=== PATIENT | female | born 1985 | race Caucasian/White ===

== ENCOUNTER 2020-08-02 13:04 | Emergency (ER) | payer MEDICAID, SELFPAY ==
[2020-08-02 13:11] VITALS: BP 110/55; PULSE 81; RESP 20; TEMP 37.4; O2SAT 99; BMI 28.3
--- NOTE | 2020-08-02 13:21 | XR_ITS ---
PROCEDURE: XR CHEST 2V CLINICAL HISTORY: SHORT OF BREATH COMPARISON: CR CXR2V XR chest 2V from 04/05/2018 FINDINGS: The lung bermeo are fairly well expanded. There is mild generalized cardiomegaly representing a change from previous chest film at which time cardiac size is normal. There are small bilateral pleural effusions. There is mild vascular congestion with slight prominence of the upper lobe vessels. There is subtle patchy opacities seen through the left heart border probably representing atelectasis although a small pneumonic infiltrate cannot be excluded. There is mild dextroscoliotic curvature of the upper lumbar spine. IMPRESSION: Mild cardiomegaly with mild pulmonary venous hypertension and small bilateral pleural effusions and early congestive failure is probable, cannot exclude possible small pneumonic infiltrate left lower lobe Dictated by: Dr. Micah Contreras MD 08/02/2020 14:15 Dr. Micah Contreras MD in [place] 08/02/2020 14:15
[2020-08-02 13:34] VITALS: BP 110/55; PULSE 81; RESP 20; TEMP 37.4; O2SAT 99
--- NOTE | 2020-08-02 13:37 | HMH.EDUTC ---
[facility] [place] Disposition Clinical Impression: Bilateral pleural effusion Pneumonia Qualifiers: Pneumonia type: due to unspecified organism Laterality: left Lung location: lower lobe of lung Qualified Code(s): J18.9 - Pneumonia, unspecified organism Disposition: Home, Self-Care Condition on Discharge: Good Instructions: Pneumonia-Adult, Prednisone, Azithromycin Additional Instructions: Continue using Albuteral inhaler as prescribed * Follow up with Cardiology as advised, you need to call and make appointment for further treatment and evaluation Straight to ER if any life threatening symptoms, chest pain, worsening of pain in lungs or severe shortness of breath No work until test results back Return if needed Take medication as prescribed Follow up with Family Doctor for further evaluation and treatment You was tested for COVID 19 call the [facility] in the next 48-72 hours to see if your test result is back and the result Make sure that you are drinking plenty of fluids with the mucinex Prescriptions: guaiFENesin [Mucinex 600mg tablet] 600 mg PO Q12H PRN #20 tab.er.[id number] PRN Reason: Congestion Transmission Status: Received by [id number] Azithromycin [Z-Matthew 250mg Tab] 250 mg PO DIRECTED #6 tab Transmission Status: Received by [id number] Referrals: PCP,No [Primary Care Provider] - As needed Chencho Boone PA [Physician Quarantine Inspector] - Otilia Tan APRN [Nurse Practitioner] - Time of Disposition: 14:33 Medical Decision Making - Rey Inquiry Pt receiving controlled substance: No Rey was queried for this patient: No Vital Signs: 08/02/20 13:11 08/02/20 13:34 Temperature 99.3 F 99.3 F Temperature Source Oral Pulse Rate 81 Pulse Rate [Left] 81 Respiratory Rate 20 20 Blood Pressure 110/55 L Blood Pressure [Right Arm] 110/55 L Blood Pressure Mean [Right Arm] 73 Blood Pressure Source [Right Arm] Automatic Cuff Blood Pressure Position [Right Arm] Sitting 02 Sat by Pulse Oximetry 99 Oxygen Delivery Method Room Air Orders (Tests/Meds): ORDERS Category Date Time Status Covid-19 Nasal PCR Sendout Moe Stat Lab 08/02/20 13:40 Received - Radiology Data #1 Image(s): Chest Image Reviewed: Yes I have reviewed radiologist's interpretation Mild cardiomegaly with mild pulmonary venous hypertension and small bilateral pleural effusions and early congestive failure is probable, cannot exclude possible small pneumonic infiltrate left lower lobe - Reevaluation(s) Time: 14:30 Reevaluation #1: After viewing xray and Radiologist interpretation, Discussed with patient that we could transfer her to ED for further work up and evaluation, patient declined at this time Spoke with Cardiology clinic and patient was given card to call for appointment for further work up and evaluation and advised that she needed to return immediately to the ED if she begin experiencing CP or any life threatening symptoms Patient verbalized understanding and start medication as prescribed.. Pt reports has taken Azithromycin and Mucinex in the past without reactions or complications, No distress sitting in room talking with family [facility] HPI - General Stated complaint: pulurisy Time Seen by Provider: 08/02/20 13:37 Mode of Arrival: Ambulatory Source of Information: Significant Other Limitations: No Limitations Description of Symptoms (Recalled from Triage Doc. by RN): Pt was seen at the [facility] and they think she might have pleusy. Pt c/o pain when taking a breath in that radiates into her shoulders, rash on face, SOB, and fever of 101 this morning. HEENT Symptoms (Recalled from RN notes): No Resp Symptoms (Recalled from RN notes): Yes Skin Symptoms (Recalled from RN notes): No MS Symptoms (Recalled from RN notes): No Functional Status (Recalled from RN notes): WNL - History of Present Illness Provider Complaint: Patient states that she has a history of Pleurisy states that she feels like she may have it ag
[2020-08-04 12:50] LABS: Covid-19 Nasal PCR Sendout Lex NOT DETECTED
== END 2020-08-02 14:51 | disposition home or self-care (01) ==
PROVIDERS: Emergency Provider Nurse Practitioner
DX: J90 Pleural effusion, not elsewhere classified (principal); J18.9 Pneumonia, unspecified organism; F17.210 Nicotine dependence, cigarettes, uncomplicated; G43.709 Chronic migraine without aura, not intractable, without status migrainosus; Z79.899 Other long term (current) drug therapy; Z20.828 Contact with and (suspected) exposure to other viral communicable diseases
CPT/HCPCS: 71046; 99202; U0004

== ENCOUNTER 2020-08-04 11:27 | Emergency (ER) | payer MEDICAID, SELFPAY ==
[2020-08-04 11:29] VITALS: BP 124/76; PULSE 90; RESP 18; TEMP 37.4; O2SAT 83; BMI 28.3
--- NOTE | 2020-08-04 11:50 | HMH.EDGENADL ---
ED Disposition Clinical Impression: Exacerbation of systemic lupus, Pericardial effusion, Bilateral pleural effusion Disposition: Xfer Short-Term Hosp Condition on Discharge: Serious Referrals: PCP,No [Primary Care Provider] - - Critical Care Critical Care Time: No Attestation: On 08/04/20, the high probability of a clinically significant, sudden or life threatening deterioration of the following system(s) required my full and direct attention, intervention and personal management. The time I documented below is in addition to time spent performing reported procedures but includes the following listed in this critical care notation. Medical Decision Making - Rey Inquiry Pt receiving controlled substance: No Vital Signs: 08/04/20 11:29 08/04/20 12:02 08/04/20 12:45 Temperature 99.3 F Temperature Source Oral Pulse Rate 94 H Pulse Rate [Left Radial] 90 101 H Respiratory Rate 18 Blood Pressure [Right Arm] 124/76 116/74 Blood Pressure Mean [Right Arm] 92 88 Blood Pressure Source [Right Arm] Automatic Cuff Blood Pressure Position [Right Arm] Sitting 02 Sat by Pulse Oximetry 83 L 99 Oxygen Delivery Method Room Air Nasal Cannula Oxygen Flow Rate (LPM) 2 08/04/20 14:16 Temperature Temperature Source Pulse Rate Pulse Rate [Left Radial] 105 H Respiratory Rate Blood Pressure [Right Arm] 103/67 L Blood Pressure Mean [Right Arm] 79 Blood Pressure Source [Right Arm] Automatic Cuff Blood Pressure Position [Right Arm] Sitting 02 Sat by Pulse Oximetry Oxygen Delivery Method Oxygen Flow Rate (LPM) - Lab Data Lab Results 08/04/20 12:07: WBC 16.7 H, RBC 4.63, Hgb 13.4, Hct 38.8, MCV 83.8, MCH 29.0, MCHC 34.6, RDW 12.7, Plt Count 573 H, MPV 7.1 L, Neut % (Auto) 90.8 H, Lymph % (Auto) 3.1 L, [place] % (Auto) 5.1, Eos % (Auto) 0.6, Baso % (Auto) 0.4, Neut # (Auto) 15.2 H, Lymph # (Auto) 0.5 L, [place] # (Auto) 0.9, Eos # (Auto) 0.1, Baso # (Auto) 0.1, Total Counted 100, Neutrophils % (Manual) 91 H, Lymphocytes % (Manual) 3 L, Monocytes % (Manual) 5, Eosinophils % (Manual) 1, Platelet Estimate Slight increase, RBC Morphology Normal 08/04/20 12:07: Sodium 137, Potassium 4.0, Chloride 102, Carbon Dioxide 29, Anion Gap 10.0, BUN 9, Creatinine 0.50 L, Estimated Creat Clear 173, Estimated GFR 140, Est GFR ( Amer) 169, Glucose 139 H, Calcium 9.5, Total Bilirubin 0.8, AST 23, ALT 41, Alkaline Phosphatase 91, Troponin I < 0.01, Total Protein 8.0, Albumin 4.0, Globulin 4.0 H, Albumin/Globulin Ratio 1.0 L 08/04/20 12:07: Lactate 1.1 08/04/20 12:07: C-Reactive Protein 98.4 H, NT-Pro-B Natriuret Pep 127 H 08/04/20 12:07: ESR 53 H 08/04/20 12:07: SARS-CoV-2 IgG Ab (Rapid) Negative, SARS-CoV-2 IgM Ab (Rapid) Negative 08/04/20 12:07: Serum HCG, Qual Negative 08/04/20 12:47: Specimen Source Left radial, O2 % 21% ra, ABG pH 7.47 H, ABG pCO2 32.3 L, ABG pO2 81.4, ABG HCO3 22.8, ABG Total CO2 23.8, ABG O2 Saturation 96, ABG Base Excess -1.0, Raghav Test Acceptable Result diagrams: 08/04/20 12:07 08/04/20 12:07 Orders (Tests/Meds): ED MEDICATIONS Discontinued Medications Generic Name Dose Route Start Last Admin Trade Name Luis PRN Reason Stop Dose Admin Albuterol/Ipratropium 3 ml 08/04/20 11:52 08/04/20 12:02 Duoneb 3ml Neb IH 08/04/20 11:53 3 ml ONCE ONE Administration Ioversol 70 ml 08/04/20 13:11 08/04/20 13:13 Rad-Optiray 350 100ml Vial IV 08/04/20 13:12 70 ml ONCE ONE Administration Protocol Ketorolac Tromethamine 30 mg 08/04/20 12:40 08/04/20 12:46 Toradol 30mg/Ml Vial IV 08/04/20 12:41 30 mg ONCE ONE Administration Methylprednisolone Sodium Succinate 125 mg 08/04/20 11:52 08/04/20 12:12 Solu-Medrol 125mg/2ml Vial IV 08/04/20 11:53 125 mg ONCE ONE Administration Ondansetron HCl 4 mg 08/04/20 12:40 08/04/20 12:46 Zofran 4mg/2ml Vial IV 08/04/20 12:41 4 mg ONCE ONE Administration Sodium Chloride 50 ml 08/04/20 13:11 08/04/20 13:12
[2020-08-04 12:02] VITALS: PULSE 93; PULSE 94
--- NOTE | 2020-08-04 12:09 | CT_ITS ---
PROCEDURE: CT ANGIO CHEST Referring Doctor: Samm Friedman Patient Age:34Y CLINCIAL INDICATION: soa dyspnea 1 month. Chest pain. History of lupus. COMPARISON: CR CXR2V XR chest 2V from 04/05/2018 CR XR CHEST 2V from 08/02/2020 TECHNIQUE: IV Contrast: 70ML OPTIRAY 350 rapid bolus, followed by 40 mL normal saline bolus Thin-section helical axial images obtained with thickened axial images as well as MIP P thick slab volume sagittal and coronal reformats CTA technique. All CT scans at the facility use one or more dose reduction, viz: automated exposure control, ma/kV adjustment per patient size (including targeted exams where dose is matched to indication, i.e. head), or iterative reconstruction technique. FINDINGS: Slight motion artifact and streaking does slightly impair images at the lung bases on this study. PULMONARY ARTERIES: No definitive pulmonary embolus evident. The main pulmonary artery appears satisfactory. Main pulmonary arteries and branch of pulmonary arteries through the level of both hilar regions region satisfactory.. Upper lobe vessels appear satisfactory. However I would note the study is somewhat limited on the 4th and 5th order vessels lower lobe/lung bases due to motion artifact making it difficult to totally exclude pulmonary embolism towards lung bases and above the diaphragm.. However more likely this is a stippled appearance of multiple vessels just above the diaphragm reflects motion artifact AORTA arch and descending aorta:-Unremarkable no acute finding. No thoracic aortic aneurysm or dissection evident HEART: Pericardial effusion-. Generous circumferential pericardial effusion-measures just over 19 cm thickness overlying the posteriorly heart and17 mm overlying right aspect of heart. Slightly less thickness anteriorly. The underlying heart appears normal-upper normal size of question perhaps slight left atrial enlargement. LUNGS, and PLEURAL SPACES: Small bilateral pleural effusions associated with bibasilar airspace disease and atelectasis most evident 1posteriorly. There is also area of mainly atelectasis seen at the left lower lobe adjacent overlying the left heart border. Trachea and airways appear satisfactory. No intraluminal findings No hilar mass or pathology. MEDIASTINAL:: Scattered moderate size mediastinal lymph nodes. But no retrocrural adenopathy 1 of the larger lymph nodes anterior-most aspect of AP window, measures up to 20 mm AP x 12 mm wide 15 mm height. Other nodes AP window measured up to 15 mm x 8 mm but is also a precarinal lymph node 2 measuring 14 mm. Slight hazy appearance to the fat throughout mediastinum also noted of and conjunction with the significant pericardial effusion ESOPHAGUS appears mild/moderate dilated throughout, particularly through lower half of the esophagus. Air-fluid level within the esophagus may reflux. BONY STRUCTURES: No acute bony abnormalities apparent.The osseous structures appear intact Mild dextro curvature lower T-spine UPPER ABDOMEN: Liver a partially imaged suspect may be slightly enlarged... Generous caliber IVC noted. IMPRESSION: 1.. No definitive pulmonary embolism at the major pulmonary arteries. Motion artifact degrades images and limits evaluation of smaller 4th and 5th order pulmonary arteries towards the lung bases-making it difficult to totally exclude pulmonary embolism at these more distal smaller lower lobe vessels bilateral. However would favor we are more likely merely viewing motion artifact 2... Significant appearing Pericardial Effusion. Measuring over 1.9 cm posteriorly-. Warrants echocardiogram correlation and cardiology consult 3. Subtle hazy appearance throughout th
--- NOTE | 2020-08-04 12:21 | PC.NURSE ---
RT at bedside. EKG and v/s delayed.
--- NOTE | 2020-08-04 12:22 | ECG_ITS ---
APPROVED REPORT Exam: Resting ECG HR:94 bpm ECG Measurements Heart Rate 94 AXES PA 138 P 57 QRSd 66 QRS 40 QT 336 T 6 QTc 420 <Conclusion> Normal sinus rhythm Possible Left atrial enlargement Borderline ECG Electronically signed by : Kenny Fletcher, 08/05/2020 08:52:27
[2020-08-04 12:26] LABS: Basophils # 0.1 K/mm3 (0-0.2); Basophils % 0.4 % (0.1-2.0); Eosinophils # 0.1 K/mm3 (0.0-0.4); Eosinophils % 0.6 % (0.1-12.0); Hematocrit 38.8 % (37.0-47.0); Hemoglobin 13.4 g/dL (12.2-16.2); Lymphocytes # 0.5 K/mm3 (0.7-4.5); Lymphocytes % 3.1 % (10-50); Mean Corpuscular HGB Conc 34.6 g/dL (31.8-35.4); Mean Corpuscular Volume 83.8 fl (81-99); Mean Platelet Volume 7.1 fl (7.4-10.4); Monocytes # 0.9 K/mm3 (0.1-1.0); Monocytes % 5.1 % (1.7-9.3); Neutrophils # 15.2 K/mm3 (1.8-7.8); Neutrophils % 90.8 % (37.0-80.0); Platelet Count 573 K/mm3 (142-424); Red Blood Count 4.63 M/mm3 (4.20-5.40); Red Cell Distribution Width 12.7 % (11.5-17.5); White Blood Count 16.7 K/mm3 (4.8-10.8)
[2020-08-04 12:31] LABS: HCG Qualitative, Serum Negative (Negative)
[2020-08-04 12:32] LABS: Alanine Aminotransferase 41 U/L (12-78); Alkaline Phosphatase 91 U/L (38-126); Aspartate Amino Transferase 23 U/L (14-36); Bilirubin,Total 0.8 mg/dl (0.2-1.3); Blood Urea Nitrogen 9 mg/dl (7-17); Calcium 9.5 mg/dl (8.4-10.2); Carbon Dioxide 29 mmol/L (22.0-30.0); Chloride 102 mmol/L (98-107); Creatinine Clearance Estimated 173 mL/min (50-200); Estimated Glomerular Filt Rate 140 ml/min (>60); GFR (African American) 169 ML/MIN (>60); Glucose 139 mg/dl (74-100); Lactic Acid 1.1 mmol/L (0.7-2.1); Sodium 137 mmol/L (136-145)
[2020-08-04 12:33] LABS: MANUAL DIFFERENTIAL MANUAL DIFFERENTIAL (MANUAL DIFF)
[2020-08-04 12:37] LABS: C-Reactive Protein 98.4 mg/L (0-4)
--- NOTE | 2020-08-04 12:39 | PC.NURSE ---
Pt's previous covid test was negative per vidya in Lab
[2020-08-04 12:43] LABS: NT Pro Brain Natriuretic Pep. 127 pg/mL (0-125)
[2020-08-04 12:44] LABS: Eosinophils % 1 % (0-3); Lymphocytes % 3 % (10-50); Monocytes % 5 % (2-9); Neutrophils % 91 % (42-76); Platelet Estimate Slight Increase; Total Cells Counted 100
[2020-08-04 12:45] VITALS: BP 116/74; PULSE 101; O2SAT 99
[2020-08-04 12:45] LABS: RBC Morphology Normal
[2020-08-04 12:46] LABS: Troponin I < 0.01 ng/ml (0.00-0.034)
[2020-08-04 12:48] LABS: Coronavirus 19 IgG Antibody Negative (Negative); Coronavirus 19 IgM Antibody Negative (Negative)
[2020-08-04 12:50] LABS: ABG HCO3 22.8 mmhg (22.0-26.0); ABG Oxygen Saturation 96 % (90-100); ABG PCO2 32.3 mmhg (35.0-45.0); ABG PH 7.47 mmol/L (7.35-7.45); ABG PO2 81.4 mmhg (80-100); ABG TCO2 23.8 mmhg (23-27)
[2020-08-04 12:51] LABS: Allen's Test ACCEPTABLE; Oxygen 21% RA %; Source Left Radial
--- NOTE | 2020-08-04 13:01 | PC.NURSE ---
pt to rad.
[2020-08-04 13:03] LABS: Erythrocyte Sedimentation Rate 53 mm/hr (0-20)
--- NOTE | 2020-08-04 13:15 | PC.NURSE ---
pt returned from rad
--- NOTE | 2020-08-04 14:09 | PC.NURSE ---
[facility]ed [facility], stated they would get in touch with the hospitalist and would call us back
[2020-08-04 14:16] VITALS: BP 103/67; PULSE 105
--- NOTE | 2020-08-04 14:53 | PC.NURSE ---
[facility] Administrator and Hospitalist at [facility] discussing pt. We will be awaiting a calling back with a bed assignment.
--- NOTE | 2020-08-04 14:56 | PC.NURSE ---
speaking to the hospitalist at [facility]
--- NOTE | 2020-08-04 15:06 | PC.NURSE ---
Due to pt going by [facility], documents given to pt and ct disk for transfer to [facility]. Was told by [facility] due to pt coming by [facility] to their hospital they would pt room upon arrival, No report needed but I will attempt to call HS at [facility] to update. IV wrapped and kept in place for pt transfer. states he is ok for pt to keep IV for [facility] transfer.
--- NOTE | 2020-08-04 15:24 | PC.NURSE ---
Called HS at [facility] to give a report to for pt being transferred, [facility] continued to say that it wasnt a transfer per their end but it is through ours, notified [facility] fd/t BRAY[facility] we need a bed assignment and someone to give report to. HS stated they would call us back with a report and an assignment
[2020-08-04 15:26] VITALS: BP 111/66; PULSE 96; O2SAT 95
--- NOTE | 2020-08-04 15:55 | PC.NURSE ---
Report given to special agent in charge Trisha at [facility]
[2020-08-04 16:05] VITALS: BP 111/66; PULSE 98; RESP 19; TEMP 37.2; O2SAT 95
== END 2020-08-04 16:09 | disposition short-term general hospital (02) ==
PROVIDERS: Emergency Provider Emergency Medicine
DX: I31.3 Pericardial effusion (noninflammatory) (principal); M32.9 Systemic lupus erythematosus, unspecified; J90 Pleural effusion, not elsewhere classified; G43.709 Chronic migraine without aura, not intractable, without status migrainosus; Z20.828 Contact with and (suspected) exposure to other viral communicable diseases; Z79.899 Other long term (current) drug therapy; F17.210 Nicotine dependence, cigarettes, uncomplicated
CPT/HCPCS: 71275; 80053; 82803; 83605; 83880; 84484; 84703; 85007; 85025; 85651; 86140; 86328; 87040; 93005; 96367; 96374; 99285; J2405; Q9967

== ENCOUNTER 2020-09-07 20:54 | Emergency (ER) | payer OTHER, SELFPAY ==
[2020-09-07 20:54] VITALS: BP 122/80; PULSE 74; RESP 15; TEMP 36.5; O2SAT 98; BMI 21.0
--- NOTE | 2020-09-07 20:58 | HMH.EDGENADL ---
ED Disposition Clinical Impression: Lupus (systemic lupus erythematosus) Qualifiers: Systemic lupus erythematosus type: unspecified Systemic lupus erythematosus organ involvement: unspecified Qualified Code(s): M32.9 - Systemic lupus erythematosus, unspecified Chest pain Qualifiers: Chest pain type: unspecified Qualified Code(s): R07.9 - Chest pain, unspecified Disposition: Home, Self-Care Condition on Discharge: Fair Instructions: DI for Atypical Chest Pain Additional Instructions: Continue tramadol and meloxicam for chest pain until you follow-up with your primary care doctor and your lupus doctor. Call both of them on Wednesday to make appointments to be seen as soon as possible. Additional instructions for CHEST PAIN: See your physician as soon as possible for further evaluation. Return immediately if worsening chest pain, vomiting, shortness of breath, fever, coughing of blood. Referrals: Provider,Referral, [Referring] - - Critical Care Critical Care Time: No Attestation: On , the high probability of a clinically significant, sudden or life threatening deterioration of the following system(s) required my full and direct attention, intervention and personal management. The time I documented below is in addition to time spent performing reported procedures but includes the following listed in this critical care notation. Medical Decision Making - Rey Inquiry Pt receiving controlled substance: No Vital Signs: 09/07/20 20:54 Temperature 97.7 F Temperature Source Oral Pulse Rate [Right Brachial] 74 Respiratory Rate 15 Blood Pressure [Right Arm] 122/80 Blood Pressure Mean [Right Arm] 94 Blood Pressure Source [Right Arm] Automatic Cuff Blood Pressure Position [Right Arm] Sitting 02 Sat by Pulse Oximetry 98 Oxygen Delivery Method Room Air - Lab Data Lab Results 09/07/20 21:00: WBC 6.1, RBC 4.88, Hgb 13.4, Hct 42.1, MCV 86.3, MCH 27.5, MCHC 31.8, RDW 15.1, Plt Count 288, MPV 7.2 L, Neut % (Auto) 88.4 H, Lymph % (Auto) 8.3 L, [place] % (Auto) 3.2, Eos % (Auto) 0.1, Baso % (Auto) 0.0 L, Neut # (Auto) 5.4, Lymph # (Auto) 0.5 L, [place] # (Auto) 0.2, Eos # (Auto) 0.0, Baso # (Auto) 0.0, Total Counted 100, Neutrophils % (Manual) 85 H, Band Neutrophils % 7.0, Lymphocytes % (Manual) 7 L, Monocytes % (Manual) 1 L, Platelet Estimate Normal, Hypochromasia 1+ 09/07/20 21:00: D-Dimer 0.74 09/07/20 21:00: Sodium 138, Potassium 4.1, Chloride 104, Carbon Dioxide 28, Anion Gap 10.1, BUN 8, Creatinine 0.50 L, Estimated Creat Clear 131, Estimated GFR 139, Est GFR ( Amer) 168, Glucose 127 H, Calcium 9.4, Troponin I < 0.01, NT-Pro-B Natriuret Pep 175 H 09/07/20 21:00: SARS-CoV-2 IgG Ab (Rapid) Negative, SARS-CoV-2 IgM Ab (Rapid) Negative Result diagrams: 09/07/20 21:00 09/07/20 21:00 Orders (Tests/Meds): ORDERS Category Date Time Status XR chest 2V Stat Exams 09/07/20 21:03 Taken Troponin I Q3H Lab 09/08/20 00:15 Ordered Troponin I Q3H Lab 09/08/20 03:15 Ordered Urinalysis and Microscopic Stat Lab 09/07/20 22:19 Received - Radiology Data #1 Image(s): Chest Image Reviewed: Yes I reviewed the patient's radiology image No acute disease. Heart size has decreased (likely improvement in pericardial effusion) and pleural effusions have resolved since last chest x-ray. - ECG Data Tracing #1 EKG interpreted by Samm Friedman MD: Rhythm: sinus Rate: 77 [place]: normal Ectopy: none Conduction: normal ST Segment Changes: none T Wave Changes: none Q Waves: none Poor R wave progression Medical Decision Narrative: The patient's blood pressure and heart rate have both been stable in the emergency department with no hypotension or bradycardia. Work-up is unremarkable and pleural effusions and pericardial effusion have improved/resolved. I do not find any acute medical conditions at this time and her chest pain has been constant for a month. I feel she needs to follow-up with her tr
--- NOTE | 2020-09-07 21:03 | ECG_ITS ---
APPROVED REPORT Exam: Resting ECG HR:77 bpm ECG Measurements Heart Rate 77 AXES ID 150 P 50 QRSd 82 QRS 49 QT 380 T 27 QTc 430 Conclusion Normal sinus rhythm NDST-T Changes Abnormal ECG Electronically signed by : Kenny Fletcher, 09/13/2020 11:37:58
--- NOTE | 2020-09-07 21:03 | XR_ITS ---
PROCEDURE: XR CHEST 2V CLINICAL HISTORY: CHEST PAIN COMPARISON: CR CXR2V XR chest 2V from 04/05/2018 CR XR CHEST 2V from 08/02/[address] ANGIO CHEST from 08/04/2020 FINDINGS: The cardiomediastinal silhouette and pulmonary vascularity are within normal limits. The lungs are clear without infiltrates, suspicious nodules, or pleural effusions. No acute bony abnormalities. IMPRESSION: No acute findings. Dictated by: Dr. Micah Contreras MD 09/08/2020 08:44 Dr. Micah Contreras MD in [place] 09/08/2020 08:44
[2020-09-07 21:22] LABS: Eosinophils % 0.1 % (0.1-12.0); Hematocrit 42.1 % (37.0-47.0); Hemoglobin 13.4 g/dL (12.2-16.2); Lymphocytes # 0.5 K/mm3 (0.7-4.5); Lymphocytes % 8.3 % (10-50); Mean Corpuscular HGB Conc 31.8 g/dL (31.8-35.4); Mean Corpuscular Hemoglobin 27.5 pg (27.0-31.2); Mean Corpuscular Volume 86.3 fl (81-99); Mean Platelet Volume 7.2 fl (7.4-10.4); Monocytes # 0.2 K/mm3 (0.1-1.0); Monocytes % 3.2 % (1.7-9.3); Neutrophils # 5.4 K/mm3 (1.8-7.8); Neutrophils % 88.4 % (37.0-80.0); Platelet Count 288 K/mm3 (142-424); Red Blood Count 4.88 M/mm3 (4.20-5.40); Red Cell Distribution Width 15.1 % (11.5-17.5); White Blood Count 6.1 K/mm3 (4.8-10.8)
[2020-09-07 21:26] LABS: Chloride 104 mmol/L (98-107); Potassium 4.1 mmoL/L (3.5-5.1); Sodium 138 mmol/L (136-145)
[2020-09-07 21:29] LABS: Anion Gap 10.1 mEq/L (5-15); Blood Urea Nitrogen 8 mg/dl (7-17); Carbon Dioxide 28 mmol/L (22.0-30.0); Creatinine Clearance Estimated 131 mL/min (50-200); Estimated Glomerular Filt Rate 139 ml/min (>60); GFR (African American) 168 ML/MIN (>60)
[2020-09-07 21:30] LABS: Calcium 9.4 mg/dl (8.4-10.2); Glucose 127 mg/dl (74-100)
[2020-09-07 21:33] LABS: MANUAL DIFFERENTIAL MANUAL DIFFERENTIAL (MANUAL DIFF)
[2020-09-07 21:35] LABS: D-Dimer 0.74 ug/mL (0.15-8.0); Hypochromasia 1+; Lymphocytes % 7 % (10-50); Monocytes % 1 % (2-9); Neutrophils % 85 % (42-76); Platelet Estimate Normal; Total Cells Counted 100
[2020-09-07 21:38] LABS: Coronavirus 19 IgG Antibody Negative (Negative); Coronavirus 19 IgM Antibody Negative (Negative)
[2020-09-07 21:40] LABS: NT Pro Brain Natriuretic Pep. 175 pg/mL (0-125)
[2020-09-07 21:47] LABS: Troponin I < 0.01 ng/ml (0.00-0.034)
[2020-09-07 22:23] LABS: Microscopic, Urine URINE MICROSCOPIC (MICROSCOPIC)
[2020-09-07 22:28] LABS: Appearance,Urine CLOUDY (Clear); Bilirubin,Urine Negative (Negative); Blood, Urine Negative (Negative); Color,Urine YELLOW (Yellow); Glucose,Urine (UA) Negative (Negative); Ketones,Urine Negative (Negative); Leukocyte Esterase,Urine Negative (Negative); Nitrate,Urine Negative (Negative); Protein,Urine Negative (Negative); Specific Gravity, Urine 1.025 (1.005-1.030); Urobilinogen,Urine 0.2 EU/dl (0.2)
[2020-09-07 22:44] VITALS: BP 112/71; PULSE 75; RESP 98; TEMP 36.8; O2SAT 98
--- NOTE | 2020-09-07 22:47 | PC.NURSE ---
PT LEFT ED VIA AMBULATION. NO ACUTE DISTRESS NOTED. EMV 15. TEARFUL THAT WE COULDN'T GIVEN HER ANSWERS TO ALL HER QUESTIONS RE: HER LUPUS PROCESS. DISCUSSED SEEKING FOLLOW UP WITH DR MCGHEE WELL DR FARLEY . PT VERBALIZED UNDERSTANDING.Kavon ASHLYN SHE IS HAVING A HARD TIME AT HOME WITH HER TEENS AND HER SIG OTHER AND EMOTIONAL DISTRESS RELATED TO BEING OFF WORK DUE TO SITUATION. PT CRYNG RE: CAR PAYMENT BEING LATE. DISCUSSED PLANS FOR FIXING HER LIFE CHALLENGES WELL MEDICAL. SEEMED APPEASED BY CONVERSATION.
[2020-09-07 22:53] LABS: Bacteria,Urine 4+ /lpf
== END 2020-09-07 22:49 | disposition home or self-care (01) ==
PROVIDERS: Emergency Provider Emergency Medicine; PCP Emergency Medicine
DX: M32.9 Systemic lupus erythematosus, unspecified (principal); R07.9 Chest pain, unspecified; N39.0 Urinary tract infection, site not specified; B96.1 Klebsiella pneumoniae [K. pneumoniae] as the cause of diseases classified elsewhere; G43.709 Chronic migraine without aura, not intractable, without status migrainosus; Z87.891 Personal history of nicotine dependence; Z01.84 Encounter for antibody response examination
CPT/HCPCS: 71046; 80048; 81001; 83880; 84484; 85007; 85025; 85378; 86328; 87086; 87088; 87186; 93005; 99282

== ENCOUNTER 2021-03-29 20:24 | Emergency (ER) | payer OTHER, SELFPAY ==
[2021-03-29] VITALS (9 sets, daily range): BP systolic 112–129; BP diastolic 73–83; PULSE 76–108; RESP 16–18; TEMP 37.1; O2SAT 94–100; BMI 27.4
--- NOTE | 2021-03-29 20:50 | XR_ITS ---
PROCEDURE INFORMATION: Exam: XR Chest Exam date and time: 03/29/2021 8:50 PM Age: 35 years old Clinical indication: Cough and shortness of breath; Patient HX: SOA, coughing up mucas TECHNIQUE: Imaging protocol: XR of the chest. Views: 4 or more views. COMPARISON: CT ANGIO CHEST 03/29/2021 9:24 PM FINDINGS: Lungs: Unremarkable. No consolidation. Pleural spaces: Unremarkable. No pleural effusion. No pneumothorax. Heart/Mediastinum: Unremarkable. No cardiomegaly. Bones/joints: Stable scoliosis of the spine is seen. IMPRESSION: No evidence of a new cardiopulmonary process.
--- NOTE | 2021-03-29 20:50 | CT_ITS ---
PROCEDURE INFORMATION: Exam: CT Abdomen And Pelvis With Contrast Exam date and time: 03/29/2021 8:50 PM Age: 35 years old Clinical indication: Patient HX: SOA, coughing up mucas TECHNIQUE: Imaging protocol: Computed tomography of the abdomen and pelvis with contrast. Radiation optimization: All CT scans at this facility use at least one of these dose optimization techniques: automated exposure control; mA and/or kV adjustment per patient size (includes targeted exams where dose is matched to clinical indication); or iterative reconstruction. Contrast material: ISOVUE; Contrast volume: 70 ml; Contrast route: IV; COMPARISON: No relevant prior studies available. FINDINGS: Substantial delays in image review were made because the tech would not send the corrected CT abdomen and pelvis axial images despite multiple requests. The dictation was given off of the sagittal and coronal images only since the axial images were not available for review. Liver: Normal. No mass. Gallbladder and bile ducts: Normal. No calcified stones. No ductal dilation. Pancreas: Normal. No ductal dilation. Spleen: Normal. No splenomegaly. Adrenal glands: Normal. No mass. Kidneys and ureters: Multiple bilateral lesions throughout the kidneys are seen which meet CT criteria for simple cysts. Bosniak 1 lesions. No additional evaluation is needed. Stomach and bowel: Contrast material is seen throughout the colon. Appendix: No evidence of appendicitis. Intraperitoneal space: Unremarkable. No free air. No significant fluid collection. Vasculature: Unremarkable. No abdominal aortic aneurysm. Lymph nodes: Unremarkable. No enlarged lymph nodes. Urinary bladder: Unremarkable as visualized. Reproductive: An IUD is seen centered within the uterine cavity. Bones/joints: Scoliosis of the spine is seen. Soft tissues: Unremarkable. IMPRESSION: No acute findings. Substantial delay in report was due to axial images of the abdomen and pelvis not being sent despite multiple requests. Axial images of the CT a chest were included with this study. Sagittal and coronal images were utilized for interpretation of this exam. COMMENTS: Consistent with the [place] [employer]'s Incidental Findings Committee white paper (J Am Musa Radiol 2018): Any incidental renal lesion less than 1 cm or classified as too small to characterize, or any incidental cystic renal lesion characterized as simple-appearing, is likely benign. No follow-up imaging is recommended for these lesions per consensus recommendations based on imaging criteria.
--- NOTE | 2021-03-29 20:50 | CT_ITS ---
PROCEDURE INFORMATION: Exam: CTA Chest With Contrast Exam date and time: 03/29/2021 8:50 PM Age: 35 years old Clinical indication: Patient HX: SOA, coughing up mucas TECHNIQUE: Imaging protocol: Computed tomographic angiography of the chest with contrast. 3D rendering (Not supervised by radiologist): MIP and/or 3D reconstructed images were created by the technologist. Radiation optimization: All CT scans at this facility use at least one of these dose optimization techniques: automated exposure control; mA and/or kV adjustment per patient size (includes targeted exams where dose is matched to clinical indication); or iterative reconstruction. Contrast material: ISOVUE 370; Contrast volume: 70 ml; Contrast route: INTRAVENOUS (IV); COMPARISON: CT ANGIO CHEST 08/04/2020 1:06 PM FINDINGS: Pulmonary arteries: Normal. No pulmonary emboli. Aorta: Unremarkable. No aortic aneurysm. No aortic dissection. Lungs: Unremarkable. No consolidation. No masses. Pleural spaces: Unremarkable. No pneumothorax. No pleural effusion. Heart: Unremarkable. No cardiomegaly. No pericardial effusion. Lymph nodes: Unremarkable. No enlarged lymph nodes. Bones/joints: Unremarkable. No acute fracture. Soft tissues: Unremarkable. IMPRESSION: No acute findings.
--- NOTE | 2021-03-29 20:50 | ECG_ITS ---
APPROVED REPORT Exam: Resting ECG HR:80 bpm ECG Measurements Heart Rate 80 AXES MI 156 P 73 QRSd 74 QRS 65 QT 370 T 66 QTc 426 Conclusion Normal sinus rhythm Normal ECG Electronically signed by : Sonny Hickey, 03/30/2021 16:38:18
--- NOTE | 2021-03-29 20:54 | HMH.EDSOB ---
ED Disposition Clinical Impression: Bronchitis, Acute viral syndrome Disposition: Home, Self-Care Condition on Discharge: Good Instructions: DI for Cough -- Adult Additional Instructions: fluids and call pcp for follo wup Prescriptions: levoFLOXacin [Levaquin 500mg tab] 500 mg PO DAILY #7 tab Transmission Status: Pending to [facility] Benzonatate [Tessalon Perle 100mg Cap] 100 mg PO TID #30 cap Transmission Status: Pending to [facility] ondansetron HCL [Zofran 4mg Tab] 4 mg PO TID #21 tab Transmission Status: Pending to [facility] Referrals: Nicolás Curtis MD [Primary Care Provider] - - Critical Care Critical Care Time: No Attestation: On 03/29/21, the high probability of a clinically significant, sudden or life threatening deterioration of the following system(s) required my full and direct attention, intervention and personal management. The time I documented below is in addition to time spent performing reported procedures but includes the following listed in this critical care notation. Medical Decision Making - Medical Records Medical records reviewed: Yes: I reviewed the patient's medical records. - Rey Inquiry Pt receiving controlled substance: No Vital Signs: 03/29/21 20:35 03/29/21 21:00 03/29/21 21:44 Temperature 98.7 F Temperature Source Oral Pulse Rate 94 H 99 H Pulse Rate [Right] 90 Respiratory Rate 18 17 17 Blood Pressure 129/79 126/81 Blood Pressure [Right Arm] 125/80 Blood Pressure Mean 89 Blood Pressure Mean [Right Arm] 95 Blood Pressure Source Automatic Cuff Blood Pressure Source [Right Arm] Automatic Cuff Blood Pressure Position Sitting Blood Pressure Position [Right Arm] Sitting 02 Sat by Pulse Oximetry 98 94 L 99 Oxygen Delivery Method Room Air Room Air 03/29/21 22:00 03/29/21 22:30 03/29/21 22:32 Temperature Temperature Source Pulse Rate 100 H 89 76 Pulse Rate [Right] Respiratory Rate 16 17 Blood Pressure 127/77 112/73 Blood Pressure [Right Arm] Blood Pressure Mean 91 86 Blood Pressure Mean [Right Arm] Blood Pressure Source Blood Pressure Source [Right Arm] Blood Pressure Position Blood Pressure Position [Right Arm] 02 Sat by Pulse Oximetry 99 100 Oxygen Delivery Method 03/29/21 22:33 03/29/21 23:00 Temperature Temperature Source Pulse Rate 77 108 H Pulse Rate [Right] Respiratory Rate 16 Blood Pressure 118/83 Blood Pressure [Right Arm] Blood Pressure Mean 93 Blood Pressure Mean [Right Arm] Blood Pressure Source Blood Pressure Source [Right Arm] Blood Pressure Position Blood Pressure Position [Right Arm] 02 Sat by Pulse Oximetry 98 Oxygen Delivery Method - Lab Data Lab results reviewed: Yes: I reviewed the patient's lab results. Lab Results 03/29/21 20:55: WBC 6.4, RBC 4.67, Hgb 12.9, Hct 40.9, MCV 87.6, MCH 27.6, MCHC 31.6 L, RDW 13.2, Plt Count 345, MPV 6.9 L, Neut % (Auto) 74.2, Lymph % (Auto) 11.4, [place] % (Auto) 7.8, Eos % (Auto) 5.8, Baso % (Auto) 0.9, Neut # (Auto) 4.7, Lymph # (Auto) 0.7, [place] # (Auto) 0.5, Eos # (Auto) 0.4, Baso # (Auto) 0.1, ESR 17 03/29/21 20:55: Sodium 138, Potassium 3.6, Chloride 100, Carbon Dioxide 28, Anion Gap 13.6, BUN 7, Creatinine 0.50 L, Estimated Creat Clear 165, Estimated GFR 139, Est GFR ( Amer) 168, Glucose 93, Calcium 9.3, Total Bilirubin 0.5, AST 23, ALT 12, Alkaline Phosphatase 58, Troponin I < 0.01, C-Reactive Protein 5.4 H, Total Protein 7.7, Albumin 4.7, Globulin 3.0, Albumin/Globulin Ratio 1.6, Procalcitonin 0.043 03/29/21 20:55: Lactate 1.1 03/29/21 20:55: Chlamy pneumoniae PCR Not detected, Adenovirus (PCR) Not detected, B. pertussis DNA (PCR) Not detected, Coronavirus OC43 (PCR) Not detected, Coronavirus HKU1 (PCR) Not detected, Coronavirus 229E (PCR) Not detected, SARS-CoV-2 (PCR) Not detected, Coronavirus NL63 (PCR) Not detected, Human Metapneumovir PCR Not detected, Influenza A (
[2021-03-29 21:13] LABS: Microscopic, Urine URINE MICROSCOPIC (MICROSCOPIC)
[2021-03-29 21:16] LABS: Basophils # 0.1 K/mm3 (0-0.2); Basophils % 0.9 % (0.1-2.0); Eosinophils # 0.4 K/mm3 (0.0-0.4); Eosinophils % 5.8 % (0.1-12.0); Hematocrit 40.9 % (37.0-47.0); Hemoglobin 12.9 g/dL (12.2-16.2); Lymphocytes # 0.7 K/mm3 (0.7-4.5); Lymphocytes % 11.4 % (10-50); Mean Corpuscular HGB Conc 31.6 g/dL (31.8-35.4); Mean Corpuscular Hemoglobin 27.6 pg (27.0-31.2); Mean Corpuscular Volume 87.6 fl (81-99); Mean Platelet Volume 6.9 fl (7.4-10.4); Monocytes # 0.5 K/mm3 (0.1-1.0); Monocytes % 7.8 % (1.7-9.3); Neutrophils # 4.7 K/mm3 (1.8-7.8); Neutrophils % 74.2 % (37.0-80.0); Platelet Count 345 K/mm3 (142-424); Red Blood Count 4.67 M/mm3 (4.20-5.40); Red Cell Distribution Width 13.2 % (11.5-17.5); White Blood Count 6.4 K/mm3 (4.8-10.8)
[2021-03-29 21:17] LABS: Appearance,Urine CLEAR (Clear); Bilirubin,Urine Negative (Negative); Blood, Urine Negative (Negative); Color,Urine YELLOW (Yellow); Glucose,Urine (UA) Negative (Negative); Ketones,Urine Negative (Negative); Leukocyte Esterase,Urine TRACE (Negative); Nitrate,Urine Negative (Negative); Protein,Urine Negative (Negative); Specific Gravity, Urine <= 1.005 (1.005-1.030); Urobilinogen,Urine 0.2 EU/dl (0.2)
[2021-03-29 21:25] LABS: Bacteria,Urine Trace /lpf
[2021-03-29 21:27] LABS: Chloride 100 mmol/L (98-107); Potassium 3.6 mmoL/L (3.5-5.1); Sodium 138 mmol/L (136-145)
[2021-03-29 21:29] LABS: Alanine Aminotransferase 12 U/L (12-78); Alkaline Phosphatase 58 U/L (38-126); Anion Gap 13.6 mEq/L (5-15); Aspartate Amino Transferase 23 U/L (14-36); Bilirubin,Total 0.5 mg/dl (0.2-1.3); Blood Urea Nitrogen 7 mg/dl (7-17); Carbon Dioxide 28 mmol/L (22.0-30.0); Creatinine Clearance Estimated 165 mL/min (50-200); Estimated Glomerular Filt Rate 139 ml/min (>60); GFR (African American) 168 ML/MIN (>60); Lactic Acid 1.1 mmol/L (0.7-2.1)
[2021-03-29 21:30] LABS: Albumin Level 4.7 g/dl (3.5-5.0); Albumin/Globulin Ratio 1.6 (1.1-1.8); Calcium 9.3 mg/dl (8.4-10.2); Glucose 93 mg/dl (74-100); Total Protein,Serum 7.7 g/dl (6.3-8.2)
[2021-03-29 21:35] LABS: C-Reactive Protein 5.4 mg/L (0-4)
[2021-03-29 21:38] LABS: Adenovirus,PCR Not Detected (NotDetected); Bordetella Pertussis Not Detected (NotDetected); Chlamydophila Pneumoniae, PCR Not Detected (NotDetected); Coronavirus 19, PCR Not Detected (NotDetected); Coronavirus 229E Not Detected (NotDetected); Coronavirus NL63 Not Detected (NotDetected); Coronavirus OC43 Not Detected (NotDetected); Coronovirus HKU1,PCR Not Detected (NotDetected); Human Metapneumovirus Not Detected (NotDetected); Influenza A, PCR Not Detected (NotDetected); Influenza AH1, 2009 Not Detected (NotDetected); Influenza AH1, PCR Not Detected (NotDetected); Influenza AH3,PCR Not Detected (NotDetected); Influenza B, PCR Not Detected (NotDetected); Mycoplasma Pneumoniae, PCR Not Detected (NotDetected); Parainfluenza 1, PCR Not Detected (NotDetected); Parainfluenza 2, PCR Not Detected (NotDetected); Parainfluenza 3, PCR Not Detected (NotDetected); Parainfluenza 4, PCR Not Detected (NotDetected); Respiratory Syncytial Virus Not Detected (NotDetected)
[2021-03-29 21:45] LABS: Troponin I < 0.01 ng/ml (0.00-0.034)
[2021-03-29 21:53] LABS: Procalcitonin 0.043 ng/mL (0.0-2.0)
[2021-03-29 22:07] LABS: Erythrocyte Sedimentation Rate 17 mm/hr (0-20)
[2021-03-29 23:00] LABS: Rhinovirus/Enterovirus Detected (NotDetected)
[2021-03-29 23:20] LABS: Lipase 36 U/L (23-300)
== END 2021-03-29 23:53 | disposition home or self-care (01) ==
PROVIDERS: Emergency Provider Emergency Medicine; PCP Emergency Medicine
DX: J20.9 Acute bronchitis, unspecified (principal); B34.8 Other viral infections of unspecified site; G43.709 Chronic migraine without aura, not intractable, without status migrainosus; Z79.899 Other long term (current) drug therapy
CPT/HCPCS: 71045; 71275; 74177; 80053; 81001; 83605; 83690; 84145; 84484; 85025; 85651; 86140; 87086; 87581; 87633; 87798; 93005; 96365; 96375; 99283; J2405; Q9967

== ENCOUNTER → 2021-04-04 13:23 | Outpatient (CLI) | payer OTHER, SELFPAY | PROVIDERS: Visit Provider Internal Medicine Gastroenterology | DX: Z01.818 Encounter for other preprocedural examination (principal); Z11.52 Encounter for screening for COVID-19 | CPT/HCPCS: U0003 ==

== ENCOUNTER → 2021-05-21 12:49 | Outpatient (CLI) | payer OTHER, SELFPAY ==
[2021-05-24 07:57] LABS: QuantiFERON-TB Gold Plus Negative (Negative)
== END ==
PROVIDERS: Visit Provider Internal Medicine Rheumatology
DX: I31.9 Disease of pericardium, unspecified (principal); M32.9 Systemic lupus erythematosus, unspecified; R52 Pain, unspecified; R53.83 Other fatigue
CPT/HCPCS: 36415; 86480; U0003

== ENCOUNTER → 2021-06-03 10:03 | Outpatient (CLI) | payer OTHER, SELFPAY | PROVIDERS: Visit Provider Obstetrics & Gynecology Gynecology | DX: Z11.52 Encounter for screening for COVID-19 (principal) | CPT/HCPCS: U0003 ==

== ENCOUNTER → 2021-07-03 16:41 | Outpatient (CLI) | payer OTHER, SELFPAY ==
[2021-07-03 17:19] LABS: Basophils % 0.6 % (0.1-2.0); Eosinophils # 0.4 K/mm3 (0.0-0.4); Eosinophils % 5.9 % (0.1-12.0); Hematocrit 40.4 % (37.0-47.0); Hemoglobin 13.7 g/dL (12.2-16.2); Lymphocytes # 1.1 K/mm3 (0.7-4.5); Lymphocytes % 16.9 % (10-50); Mean Corpuscular HGB Conc 33.9 g/dL (31.8-35.4); Mean Corpuscular Hemoglobin 29.6 pg (27.0-31.2); Mean Corpuscular Volume 87.4 fl (81-99); Mean Platelet Volume 7.5 fl (7.4-10.4); Monocytes # 0.5 K/mm3 (0.1-1.0); Monocytes % 7.1 % (1.7-9.3); Neutrophils # 4.6 K/mm3 (1.8-7.8); Neutrophils % 69.4 % (37.0-80.0); Platelet Count 292 K/mm3 (142-424); Red Blood Count 4.62 M/mm3 (4.20-5.40); Red Cell Distribution Width 12.9 % (11.5-17.5); White Blood Count 6.6 K/mm3 (4.8-10.8)
[2021-07-03 17:36] LABS: Chloride 105 mmol/L (98-107); Potassium 4.3 mmoL/L (3.5-5.1); Sodium 142 mmol/L (136-145)
[2021-07-03 17:38] LABS: Alanine Aminotransferase 13 U/L (12-78); Aspartate Amino Transferase 23 U/L (14-36); Blood Urea Nitrogen 5 mg/dl (7-17); Estimated Glomerular Filt Rate 139 ml/min (>60); GFR (African American) 168 ML/MIN (>60)
[2021-07-03 17:39] LABS: Albumin Level 4.5 g/dl (3.5-5.0); Albumin/Globulin Ratio 1.7 (1.1-1.8); Alkaline Phosphatase 54 U/L (38-126); Anion Gap 16.3 mEq/L (5-15); Bilirubin,Total 0.3 mg/dl (0.2-1.3); Calcium 9.2 mg/dl (8.4-10.2); Carbon Dioxide 25 mmol/L (22.0-30.0); Globulin 2.6 g/dL (1.3-3.2); Glucose 84 mg/dl (74-100); Total Protein,Serum 7.1 g/dl (6.3-8.2)
== END ==
PROVIDERS: Visit Provider Internal Medicine Rheumatology
DX: D68.51 Activated protein C resistance (principal); I31.9 Disease of pericardium, unspecified; I73.00 Raynaud's syndrome without gangrene; M32.9 Systemic lupus erythematosus, unspecified; M35.8 Other specified systemic involvement of connective tissue
CPT/HCPCS: 36415; 80053; 85025

== ENCOUNTER → 2021-07-09 14:48 | Outpatient (CLI) | payer OTHER, SELFPAY ==
[2021-07-09 14:52] LABS: Campylobacter Not Detected (NotDetected); Clostridium Difficile A/B, PCR Not Detected (NotDetected); Plesimonas Shigalloides, PCR Not Detected (NotDetected); Salmonella, PCR Not Detected (NotDetected)
[2021-07-09 14:53] LABS: Adenovirus F 40/41, stool Not Detected (NotDetected); Astrovirus Not Detected (NotDetected); Cryptosporidium Not Detected (NotDetected); Cyclospora Cayetanesis Not Detected (NotDetected); Entamoeba histolytica Not Detected (NotDetected); Enteroaggregative E coli Not Detected (NotDetected); Enteropathogenic E coli Not Detected (NotDetected); Enterotoxigenic E coli Not Detected (NotDetected); Giardia lamblia Not Detected (NotDetected); Norovirus Not Detected (NotDetected); Rotavirus A Not Detected (NotDetected); Sapovirus Not Detected (NotDetected); Shiga-like toxin E coli Not Detected (NotDetected); Shigella Enterovasive E coli Not Detected (NotDetected); Vibrio Cholerae Not Detected (NotDetected); Vibrio, PCR Not Detected (NotDetected); Yersinia Entercolitica, PCR Not Detected (NotDetected)
[2021-07-15 15:28] LABS: Calprotectin, Fecal 53 ug/g (0-120)
== END ==
PROVIDERS: Visit Provider Nurse Practitioner Family
DX: R19.7 Diarrhea, unspecified (principal)
CPT/HCPCS: 83993; 87177; 87507

== ENCOUNTER → 2021-07-24 14:08 | Outpatient (CLI) | payer OTHER, SELFPAY ==
--- NOTE | 2021-07-24 14:13 | XR_ITS ---
PROCEDURE: XR ABDOMEN MIN 2V CLINICAL INDICATION: CHANGE IN BOWEL HABIT COMPARISON: CT CT ABDOMEN PELVIS W CON from 03/29/[address] ANGIO CHEST from 03/29/2021 FINDINGS: There is mild lumbar scoliosis convex right. There is moderate amount of retained colonic feces in the right colon with some scattered flecks of hyperdensity which may be related to ingested material. Curvilinear area of lucency noted along the left abdominal region in the mid abdomen laterally and may be related to endoluminal CT air in the colon. Air within the bowel wall is felt to be less likely but not totally excluded. There is an IUD in place. IMPRESSION: Moderate amount of retained colonic feces in the right colon. Curvilinear lucency along the left mid abdominal region laterally which may be intraluminal gas in the bowel. Cannot exclude the possibility of air within the bowel wall. Consider CT scan for further evaluation if clinically warranted. Dictated by: Raghav Johns MD 07/24/2021 14:32 Raghav Johns MD in [place] 07/24/2021 14:32
== END ==
PROVIDERS: Visit Provider Nurse Practitioner Family
DX: R19.4 Change in bowel habit (principal)
CPT/HCPCS: 74019

== ENCOUNTER → 2021-08-08 16:30 | Outpatient (CLI) | payer OTHER, SELFPAY | PROVIDERS: Visit Provider Obstetrics & Gynecology Gynecology | DX: Z01.812 Encounter for preprocedural laboratory examination (principal); Z11.52 Encounter for screening for COVID-19 | CPT/HCPCS: C9803; U0003; U0005 ==

== ENCOUNTER 2021-08-16 13:50 | Emergency (ER) | payer OTHER, SELFPAY ==
[2021-08-16 14:15] VITALS: BP 119/67; PULSE 81; RESP 18; TEMP 37; O2SAT 99; BMI 25.7
--- NOTE | 2021-08-16 14:50 | HMH.EDUTC ---
[facility] [place] Dis[place] Clinical Impression: Rash Migraine Qualifiers: Migraine type: without aura Status migrainosus presence: without status migrainosus Intractability: not intractable Qualified Code(s): G43.009 - Migraine without aura, not intractable, without status migrainosus Disposition: Home, Self-Care Condition on Discharge: Good Instructions: DI for Rash, Migraine Headaches (Alternative Therapy), Migraine -- Adult Additional Instructions: follow up with pcp if symptoms worsen return or be seen in ed Referrals: Nicolás Curtis MD [Primary Care Provider] - Time of Disposition: 15:29 Medical Decision Making - Rey Inquiry Pt receiving controlled substance: No Vital Signs: 08/16/21 14:15 08/16/21 15:04 Temperature 98.6 F 98.6 F Temperature Source Oral Pulse Rate 81 Pulse Rate [Right Brachial] 81 Respiratory Rate 18 18 Blood Pressure 119/67 Blood Pressure [Right Arm] 119/67 Blood Pressure Mean [Right Arm] 84 Blood Pressure Source [Right Arm] Automatic Cuff Blood Pressure Position [Right Arm] Sitting 02 Sat by Pulse Oximetry 99 Oxygen Delivery Method Room Air Orders (Tests/Meds): ED MEDICATIONS Discontinued Medications Generic Name Dose Route Start Last Admin Trade Name Freq PRN Reason Stop Dose Admin Dexamethasone Sodium Phosphate 4 mg 08/16/21 14:50 08/16/21 15:03 Dexamethasone 4mg/Ml 1ml Vial IM 08/16/21 14:51 4 mg ONCE ONE Administration Ketorolac Tromethamine 15 mg 08/16/21 14:50 08/16/21 15:03 Ketorolac 30mg/Ml Vial IM 08/16/21 14:51 15 mg ONCE ONE Administration [facility] [place] HPI - General Chief complaint: Urgent Treatment Center Stated complaint: SMITH Time Seen by Provider: 08/16/21 14:50 Mode of Arrival: Ambulatory Source of Information: Patient Limitations: No Limitations Description of Symptoms (Recalled from Triage Doc. by RN): PATIENT C/O MIGRAINE X 4 DAYS AND RASH TO ARMS AND LEGS X 3 DAYS HEENT Symptoms (Recalled from RN notes): Yes Resp Symptoms (Recalled from RN notes): No Skin Symptoms (Recalled from RN notes): Yes MS Symptoms (Recalled from RN notes): No Functional Status (Recalled from RN notes): WNL - History of Present Illness Provider Complaint: 35 yr old female presents for migraine. pt states hx of migraines and took her imatrex without relief. pt states she also has a itchy rash on susana arms and rt upper thigh. - Related Data Home Medications Medication Instructions Recorded Confirmed colchicine 0.6 mg tablet 0.6 mg PO BID 09/06/20 09/07/20 hydroxychloroquine 200 mg tablet 200 mg PO BID 09/06/20 09/07/20 meloxicam 15 mg tablet 15 mg PO DAILY 09/06/20 09/07/20 pantoprazole 40 mg tablet,delayed 40 mg PO DAILY 09/06/20 09/07/20 release prednisone 10 mg tablet 10 mg PO DAILY 09/06/20 09/07/20 tizanidine 2 mg capsule 2 mg PO HS 09/06/20 09/07/20 tramadol 50 mg tablet 50 mg PO TID PRN 09/06/20 09/07/20 Previous Rx's Medication Instructions Recorded albuterol sulfate 90 mcg/actuation 2 puff INHALATION Q6H PRN 7 Days 07/31/20 aerosol inhaler #6.7 g Benzonatate [Tessalon Perle 100mg 100 mg PO TID #30 cap 03/29/21 Cap] levoFLOXacin [Levaquin 500mg 500 mg PO DAILY #7 tab 03/29/21 tab] ondansetron HCL [Zofran 4mg Tab] 4 mg PO TID #21 tab 03/29/21 Allergies Allergy/AdvReac Type Severity Reaction Status Date / Time cefaclor [From [facility]] Allergy Intermediate I-RASH Verified 09/06/20 12:57 - Worker's Comp Is this a Worker's Comp case?: No [place] History - Hepatitis A Screen Drug use history?: No High risk sexual behaviors?: No History of sexually transmitted infection?: No Currently employed?: No Childcare worker?: No Do you have indoor plumbing?: Yes Do you have electricity?: Yes Attestation statement:: This patient has been screened for Hepatitis A risk factors. I have reviewed the patient's past medical history: Yes Medical History: Reports:: Migraine Denies:: Cancer, Congestive Heart Failure,
[2021-08-16 15:04] VITALS: BP 119/67; PULSE 81; RESP 18; TEMP 37; O2SAT 99
== END 2021-08-16 16:03 | disposition home or self-care (01) ==
PROVIDERS: Emergency Provider Nurse Practitioner Family; PCP Emergency Medicine
DX: G43.009 Migraine without aura, not intractable, without status migrainosus (principal)
CPT/HCPCS: 96372; 99202; G0463

== ENCOUNTER → 2021-08-29 12:42 | Outpatient (CLI) | payer OTHER, SELFPAY ==
[2021-08-29 13:19] LABS: Basophils % 0.8 % (0.1-2.0); Eosinophils # 0.1 K/mm3 (0.0-0.4); Eosinophils % 1.2 % (0.1-12.0); Hematocrit 42.7 % (37.0-47.0); Hemoglobin 14.2 g/dL (12.2-16.2); Lymphocytes # 0.7 K/mm3 (0.7-4.5); Lymphocytes % 12.8 % (10-50); Mean Corpuscular HGB Conc 33.3 g/dL (31.8-35.4); Mean Corpuscular Hemoglobin 29.8 pg (27.0-31.2); Mean Corpuscular Volume 89.5 fl (81-99); Mean Platelet Volume 7.7 fl (7.4-10.4); Monocytes # 0.4 K/mm3 (0.1-1.0); Monocytes % 6.9 % (1.7-9.3); Neutrophils # 4.4 K/mm3 (1.8-7.8); Neutrophils % 78.3 % (37.0-80.0); Platelet Count 299 K/mm3 (142-424); Red Blood Count 4.77 M/mm3 (4.20-5.40); Red Cell Distribution Width 13.4 % (11.5-17.5); White Blood Count 5.6 K/mm3 (4.8-10.8)
[2021-08-29 14:13] LABS: Alanine Aminotransferase 14 U/L (12-78); Albumin Level 4.5 g/dl (3.5-5.0); Albumin/Globulin Ratio 1.7 (1.1-1.8); Alkaline Phosphatase 53 U/L (38-126); Anion Gap 12.2 mEq/L (5-15); Aspartate Amino Transferase 22 U/L (14-36); Bilirubin,Total 0.3 mg/dl (0.2-1.3); Blood Urea Nitrogen 4 mg/dl (7-17); Calcium 9.4 mg/dl (8.4-10.2); Carbon Dioxide 27 mmol/L (22.0-30.0); Chloride 109 mmol/L (98-107); Chol/HDL Ratio 2.9 (1-3.5); Cholesterol 136 mg/dl (140-200); Estimated Glomerular Filt Rate 180 ml/min (>60); GFR (African American) 217 ML/MIN (>60); Globulin 2.6 g/dL (1.3-3.2); Glucose 90 mg/dl (74-100); HDL Cholesterol 47 mg/dl (40-60); Potassium 4.2 mmoL/L (3.5-5.1); Sodium 144 mmol/L (136-145); Total Protein,Serum 7.1 g/dl (6.3-8.2); Triglycerides 45 mg/dl (30-150); VLDL Cholesterol 9 mg/dL (0-40)
[2021-08-29 14:23] LABS: Direct LDL Cholesterol 81.59 mg/dL (100-129)
[2021-08-29 14:31] LABS: 25-OH Vitamin D, Total 56.5 ng/mL (30-100); T4 (Thyroxine) 8.9 ug/dl (5.53-11.0)
[2021-08-29 14:44] LABS: Thyroid Stimulating Hormone 1.21 uIU/mL (0.465-4.68)
== END ==
PROVIDERS: Visit Provider Nurse Practitioner Family
DX: M32.9 Systemic lupus erythematosus, unspecified (principal)
CPT/HCPCS: 36415; 80053; 80061; 82306; 84436; 84443; 85025

== ENCOUNTER → 2021-09-08 17:57 | Outpatient (CLI) | payer OTHER, SELFPAY | PROVIDERS: Visit Provider Obstetrics & Gynecology Gynecology | DX: Z01.812 Encounter for preprocedural laboratory examination (principal); Z11.52 Encounter for screening for COVID-19 | CPT/HCPCS: C9803; U0003; U0005 ==

== ENCOUNTER → 2021-11-05 12:41 | Outpatient (CLI) | payer OTHER, SELFPAY ==
[2021-11-07 06:13] LABS: H. pylori Stool Ag, EIA Positive (Negative)
== END ==
PROVIDERS: Visit Provider Nurse Practitioner Family
DX: K21.00 Gastro-esophageal reflux disease with esophagitis, without bleeding (principal)
CPT/HCPCS: 87338

== ENCOUNTER 2022-01-02 12:15 | Emergency (ER) | payer OTHER, SELFPAY ==
[2022-01-02 12:50] VITALS: BP 131/81; PULSE 75; RESP 19; TEMP 37.2; O2SAT 98; BMI 25.7
--- NOTE | 2022-01-02 13:16 | HMH.EDUTC ---
[facility] [place] Clinical Impression: Cough, Sore throat (viral) Disposition: Home, Self-Care Condition on Discharge: Good Instructions: Cough, Sore Throat Additional Instructions: *Monitor Temp, Over the counter Motrin or Tylenol as directed/as needed Tylenol every 4 hours and Motrin every 6 hours (as long as your family doctor has told you that you can take it) for fever or pain. and straight to ER if unable to lower temp less than 101.0 after medication given *Warm salt water gargles may help to soothe the throat *Throat Lozenges *Warm fluids like tea with honey may help to soothe the throat *Sleep elevated *Humidifier/Vaporizer *Bromfed may cause drowsiness. Know how it effects you (your child) before driving, caring for small child, or sending your child to school. Not other antihistamines/allergy medications while taking bromfed Your throat swab was sent for culture. Those results are typically sent to your primary care. Be sure to follow up in 2-3 days with your family doctor/primary care physician if no improvement so they can review those result and treat if necessary. If you don?t have a primary care doctor, I recommend you get one but in the mean time, you will have to return to a walk in clinic Follow up IMMEDIATELY for new or worsening symptoms or no Noticeable improvement over the next 48-72 hours. 911 for difficulty breathing or swallowing Prescriptions: Brompheniramine/Pseudoephed/Dm [Bromfed Dm Cough Syrup] 5 - 10 ml PO Q46H PRN #150 ml PRN Reason: Cough Transmission Status: Pending to [facility] Referrals: Warren Hassan MD [Primary Care Provider] - As needed Time of Disposition: 13:52 Medical Decision Making - Rey Inquiry Pt receiving controlled substance: No Rey was queried for this patient: No Vital Signs: 01/02/22 12:50 Temperature 98.9 F Temperature Source Oral Pulse Rate [Right Brachial] 75 Respiratory Rate 19 Blood Pressure [Right Arm] 131/81 Blood Pressure Mean [Right Arm] 97 Blood Pressure Source [Right Arm] Automatic Cuff Blood Pressure Position [Right Arm] Sitting 02 Sat by Pulse Oximetry 98 Oxygen Delivery Method Room Air - Lab Data Lab results reviewed: Yes: I reviewed the patient's lab results. Lab Results 01/02/22 13:27: Strep Scn Rapid Clinic Negative Orders (Tests/Meds): ORDERS Category Date Time Status Strep Screen Confirmation Stat Micro 01/02/22 13:27 Received Medical Decision Narrative: Patient states that she has taken bromfed before without reactions or complication [facility] [place] - General Stated complaint: sore throat, cough Time Seen by Provider: 01/02/22 13:16 Mode of Arrival: Ambulatory Source of Information: Patient Limitations: No Limitations Description of Symptoms (Recalled from Triage Doc. by RN): PATIENT C/O COUGH, SORE THROAT X 3 DAYS HEENT Symptoms (Recalled from RN notes): Yes Resp Symptoms (Recalled from RN notes): Yes Skin Symptoms (Recalled from RN notes): No MS Symptoms (Recalled from RN notes): No Functional Status (Recalled from RN notes): WNL - History of Present Illness Provider Complaint: Patient state that she has been having sore throat and cough for the last couple days States that she has an infusion last week and thinks it may have lowered her immune system or something States that she called them and they recommended that she come in and get checked out - Related Data Home Medications Medication Instructions Recorded Confirmed Cariprazine HCl [Vraylar] 3 mg PO DAILY 01/02/22 01/02/22 Hydroxychloroquine Sulfate 200 mg PO DAILY 01/02/22 01/02/22 [Plaquenil 200mg tablet] Promethazine HCl 12.5 mg PO Q6HP PRN 01/02/22 01/02/22 Previous Rx's Medication Instructions Recorded Brompheniramine/Pseudoephed/Dm 5 - 10 ml PO Q46H PRN #150 ml 01/02/22 [Bromfed Dm Cough Syrup] Allergies Allergy/AdvReac Type Severity Reaction Status Date / Time cefaclor [From [facility]] Allergy
[2022-01-02 13:38] LABS: UTC Strep Screen (Rapid) Negative (Negative)
[2022-01-02 14:04] VITALS: BP 131/81; PULSE 75; RESP 19; TEMP 37.2; O2SAT 98
== END 2022-01-02 14:08 | disposition home or self-care (01) ==
PROVIDERS: Emergency Provider Nurse Practitioner; PCP Emergency Medicine
DX: J02.9 Acute pharyngitis, unspecified (principal)
CPT/HCPCS: 87880; 99202; 99212; 99213; G0463

== ENCOUNTER 2023-05-23 15:59 | Emergency (ER) | payer OTHER, SELFPAY ==
[2023-05-23 16:15] VITALS: BP 124/69; PULSE 74; RESP 18; TEMP 36.9; O2SAT 98; BMI 29.7
--- NOTE | 2023-05-23 16:20 | XR_ITS ---
PROCEDURE INFORMATION: Exam: XR Abdomen Exam date and time: 05/23/2023 4:27 PM Age: 37 years old Clinical indication: Abdominal pain; Generalized; Prior surgery; Surgery date: 6+ months; Surgery type: Tubal ligation. ; Additional info: Constipation for a month patient states with fluid retention. TECHNIQUE: Imaging protocol: Radiologic exam of the abdomen. Views: Frontal supine view of the abdomen. 1 View. COMPARISON: CR XR ABDOMEN MIN 2V 07/24/2021 2:15 PM FINDINGS: Gastrointestinal tract: Moderate colonic stool burden. Nonobstructive bowel gas pattern. Intraperitoneal space: No free air seen. Bones/joints: Unremarkable. IMPRESSION: Nonobstructive bowel gas pattern. Moderate colonic stool burden.
--- NOTE | 2023-05-23 16:36 | EXP.UTC ---
Discharge Plan Disposition Patient Disposition: Home, Self-Care Condition: Good Prescriptions Prescriptions: New furosemide [Lasix] 20 mg tablet 20 mg PO BID Qty: 6 0RF polyethylene glycol 3350 [Miralax] 17 gram/dose powder 17 g PO BID PRN (Reason: constipation) Qty: 238 0RF sennosides-docusate sodium [Senokot-S] 8.6-50 mg tablet 2 tab-cap PO HS PRN (Reason: constipation) Qty: 30 0RF No Action promethazine 12.5 MG tablet 12.5 mg PO Q6HP PRN (Reason: Nausea) hydroxychloroquine 200 MG tablet 200 mg PO DAILY cariprazine 3 MG capsule 3 mg PO DAILY raaickaeliajyen-hyluxtaza-RV 118 ML syrup 5 - 10 ml PO Q46H PRN (Reason: Cough) Qty: 150 0RF Referrals Follow up/Referrals: Lita Quesada APRN [Primary Care Provider] - See instructions Activity Restrictions/Add. Instructions Additional Instructions/Restrictions: Make sure to follow up with your Family Doctor tomorrow as discussed in TXC Take Mirlax as prescribed as needed Return if needed Straight to ER if any life threatening symptoms Go home and put your legs up above the level of your heart, wear good supportive shoes Clinical Impressions Clinical Impression: Dependent edema Constipation Qualifiers: Constipation type: unspecified constipation type Qualified Code(s): K59.00 - Constipation, unspecified Instructions Patient Instructions: Constipation, DI for Dependent Edema Discharge ED Provider: Denise Nowak [facility] [place] General Stated complaint: trouble going to bathroom Mode of Arrival: Ambulatory Source of Information: Patient Limitations: No Limitations Time Seen by Provider: 05/23/23 16:36 Description of Symptoms (Recalled from Triage Doc. by RN): PATIENT C/O SWELLING TO BILATERAL LEGS AND FEET AND NO BOWEL MOVEMENT X 1 WEEK HEENT Symptoms (Recalled from RN notes): No Resp Symptoms (Recalled from RN notes): No Skin Symptoms (Recalled from RN notes): No MS Symptoms (Recalled from RN notes): Yes Functional Status (Recalled from RN notes): WNL History of Present Illness Provider Complaint: Patient states she has been having swelling on and off in her legs for the last few weeks and has seen her PCP and they give her some lasix and she is scheduled for testing on Wed States that she ran out of her lasix and has been on her feet all weekend and today her feet and ankle area swollen again and states that she hasnt had a good BM in about a week Related Data Home Medications Medication Instructions Recorded Confirmed cariprazine 3 mg capsule 3 mg PO DAILY Depression 01/02/22 01/02/22 hydroxychloroquine 200 mg tablet 200 mg PO DAILY LUPUS 01/02/22 01/02/22 promethazine 12.5 mg tablet 12.5 mg PO Q6HP PRN Nausea 01/02/22 01/02/22 Previous Rx's Medication Instructions Recorded zdcnlzfdlnrbijk-ztxxsgphbydjmpa-PG 5 - 10 ml PO Q46H PRN Cough #150 mL 01/02/22 2 mg-30 mg-10 mg/5 mL oral syrup furosemide 20 mg tablet (Lasix) 20 mg PO BID #6 tabs 05/23/23 polyethylene glycol 3350 17 17 g PO BID PRN constipation #238 05/23/23 gram/dose oral powder (Miralax) grams sennosides 8.6 mg-docusate sodium 2 tab-cap PO HS PRN constipation 05/23/23 50 mg tablet (Senokot-S) #30 tabs Allergies Allergy/AdvReac Type Severity Reaction Status Date / Time cefaclor [From [facility] Allergy Intermediate I-RASH Verified 10/23/21 16:03 Worker's Comp Is this a Worker's Comp case?: No [facility] Disclaimer: The information contained in this section may have been updated after the patient was seen, as this information can be updated by other users. Medical History (Updated 05/23/23 @ 17:37 by Denise Nowak APRN) Anxiety Depression History of gastroesophageal reflux (GERD) Migraine Surgical History (Updated 05/23/23 @ 16:26 by Ingris Arguello RN) History of section History of tubal ligation Social History Smoking Status: Former smoker second hand exposure: No alcohol intake: never substance use typ
[2023-05-23 17:10] VITALS: BP 124/69; PULSE 74; RESP 18; TEMP 36.9; O2SAT 98
== END 2023-05-23 17:46 | disposition home or self-care (01) ==
PROVIDERS: Emergency Provider Nurse Practitioner; PCP Nurse Practitioner Family
DX: K59.00 Constipation, unspecified (principal); R60.0 Localized edema; F41.9 Anxiety disorder, unspecified; F32.A Depression, unspecified; Z87.891 Personal history of nicotine dependence
CPT/HCPCS: 74018; 99212; 99214; G0463

== ENCOUNTER 2023-10-28 07:00 | Outpatient (RCR) | payer OTHER, SELFPAY ==
--- NOTE | 2023-10-04 12:50 | HMH.PTOPEV ---
PT Outpatient Evaluation Rehab PT Outpatient Evaluation Start: 10/04/23 09:08 Freq: Status: Active Protocol: Document 10/04/23 09:08 [email or web address] (Rec: 10/04/23 11:16 [email or web address] [id number]) E-signed By Rahul Barbosa, PT Outpatient Therapy Subjective History Subjective History Pt. is a 38 year old female who presents to [facility] Outpatient Physical Therapy Services in [place] for the initial evaluation this date(10/04/23) w/ c/o acute on subacute and constant lumbar(B/L) P! and burning w/ intermittent radiating LLE burning and pulling of insidious onset few months ago. Pt. reports symptoms dulled down after onset secondary to Toradol and Steroid injection, however, pt. reports symptoms returned recently w/ a vengeance. Pt. reports having no symptom relief w/ second round of steroid injection last week. Pt. reports sitting, bending over, and standing up from a seated position increase symptom complaint. Pt. reports getting some symptom relief w / laying flat. Pt. denies having any diagnostic imaging at this time, however, reports needing to make an appointment for a radiograph per referring Physician's order, but has been busy w/ her kid's after school activities. 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 Pt. denies having symptoms into the RLE, denies saddle paresthesia, denies bowel/bladder dysfunction. Current medication list includes Linaclotide, Hydroxychloroquine, Esomeprazole Magnesium, and Albuterol Sulfate. PMH includes Lupus, Gastroesophageal reflux, Section, and Hiatal Hernia. New diagnosis of cancer in past 12 No months? Chief Complaint Pain,Stiff,Paresthesia, Weakness Symptom Type Ache,Sharp,Stabbing,Burning, Shooting Symptoms Relieved By Rest/Positioning,Ice, Prescription Meds Symptoms Aggravated By Sitting,Bending/Stooping, Physical Activity,Twisting, Lifting Prior Functional Limitations None Current Functional Limitations Lifting,Housework,Driving, Standing,Sitting,Bending/ Stooping Symptom Description Constant but Variable,Activity Dependent Level of pain today (0-10) 6 Pain scale - at its best (0-10) 2 Pain scale - at its worst (0-10) 8 Lumbopelvic Eval Posture Thoracic Spine Posture Standing Position Neutral Lumbar Spine Posture Standing Position Neutral Assistive device Assistive Devices None / NA Gait Observation General Gait Pattern Observation Antalgic Gait,Decrease Weight Bear (L),Decrease Stride Lngth (R) Palapation tenderness bilateral lumbar spinal tenderness Yes: L3-S1 paraspinal tenderness Yes: B/L adjacent erector spinae mms. buttock tenderness Yes: L-sided piriformis and gluteal muscles Lumbar/Sacral Palpation Findings Tenderness Lumbar/Sacral Palpation Overall Comment grade 4 +TTP to TTP assessment above Accessory Movement L-spine Vertebrae Accessory Movements Central P/A [place],Right P/A that Elicit Symptoms [place],Left P/A [place] L3 bilateral L4 bilateral L5 bilateral S1 bilateral Range of Motion Lumbar Spine Active Flexion Range of 29 Motion (degrees) Lumbar Spine Active Extension Range of 3 Motion (degrees) Left Lumbar Spine Lateral Flexion Active 3 Range of Motion (degrees) Right Lumbar Spine Lateral Flexion 3 Active Range of Motion (degrees) Lumbar Spine ROM Limitations Soft Tissue Tightness,Muscle Tone,Pain Manual Muscle Test Bilateral Knee Extension Strength Grade 4 Good Knee Flexion Strength Grade 4- Good- Hip Flexion Strength Grade 3+ Fair+ Hip Abduction Strength Grade 4- Good- Hip Adduction Strength Grade 4- Good- Hip External Rotation Strength Grade 4- Good- Hip Internal Rotation Strength Grade 4- Good- Hip Extension Strength Grade 4- Good- Gluteus Binh Strength Grade 4- Good- Extensor Hallucis Longus Strength Grade 4 Good Ankle Dorsiflexion Strength Grade 4 Good Gastronemius/Soleus Strength Grade 4 Good DTR Rt Patellar 1+ Lt Patellar 1+ Rt Gastroc/Soleus 1+ Lt Gastroc/Soleus 1+ Altered Sensation Bilateral Comment light touch discrimination WFL in BLEs grossly Special Tests Lumbar Spine Screen Positive Hip Piriformis Test Positive Left Sciatic Nerve Tension Test Positive Left Hip 90-90 Straight Leg Raise Test Positive Left Lumbar Long [place] Distraction Test/Manual Positive Traction Outpatient Therapy Assessment Impairments Problems/Impairmments Palpation Tenderness,Impaired Range of Motion,Impaired Strength,Impaired Transfers, Impaired Gait Pattern,Impaired Standing,Impaired Sitting, Impaired Lifting,Impaired Household Care,Impaired Bending,Impaired Recreational Activities,Impaired Desk/ Computer Activities,Subjective C/O Pain,Impaired Self Care/ Self Management Prognosis Rehab Potential Good Comment w/ HEP compliancy Clinical Impression Consistent with Diagnosis Yes Consistent with Lumbago w/ Radiculopathy, L Short Term Goals Number of Weeks 2 Decreased Palpation Tenderness Yes: grade 1-2 +TTP to TTP assessment above Decrease Subjective C/O Pain Yes: worse:03/24 Patient to be Ind w/ HEP Yes Care Home Goals Number of Weeks 4 Decreased Palpation Tenderness Yes: grade 1 +TTP to TTP assessment above Increase Range of Motion Yes: lumbar AROM WFL grossly w / symptomatic P! provocation Increase Strength Yes: BLE MMT scores 4+ to 5/5 grossly w/ symptomatic P! provocation Improve Gait Pattern without Assistive Yes Device Increase Ability to Stand Yes Increase Ability to Sit Yes Improve Ability For Household Care Yes Improve Ability to Bend Yes Return to Recreational Activities Yes: improved ability w/ kids recreational activities Improve Tolerance to Work Activities Yes Improve Oswestry Score Yes Decrease Subjective C/O Pain Yes: worse:-12/25 Improve Self Care/Self Management Yes Patient to be Ind w/ Advanced HEP Yes Outpatient Therapy Plan of Care Treatment Plan May Include Therapeutic Exercise Including Home Yes Exercise Program Manual Therapy Techniques Yes Neuromuscular Re-education Yes Therapeutic Activities to Return to Yes Previous Functional/Work Level ADL/Self Care Education Yes Mechanical Traction Yes Thermal Modalities Yes Electrical Stimulation Yes Ultrasound/Phonophoresis Yes Vasopneumatic Compression Pump Yes Massage Yes Eval/Re-Eval Yes Frequency Times per week 2 Duration Number of Weeks 4 Addendums This patient is a candidate for social No or vocational rehab? Patient/Guardian verbally acknowledges Yes understanding of treatment program and consents to further treatment? Patient/Guardian verbally acknowledges Yes understanding of diagnosis, prognosis and goals for treatment? Eval Complexity PT Charges 22825 - Low Complexity Shoulder/Elbow Eval Shoulder Objective Measurements Elbow Objective Measurements PHYSICIAN CERTIFICATION: I certify the specified therapy services for Delmy Handy are required, authorized, and reviewed every 30 days.
== END 2023-11-25 16:35 | disposition home or self-care (01) ==
LOC: PT 07:00
PROVIDERS: PCP Nurse Practitioner Family; Visit Provider Nurse Practitioner Family
DX: M54.9 Dorsalgia, unspecified (principal); M54.16 Radiculopathy, lumbar region
CPT/HCPCS: 97010; 97014; 97110; 97140; 97163; G0283